=== PATIENT | male | born 1960 | race Hispanic/Latino ===

== ENCOUNTER 2024-01-13 18:50 | Observation (INO) | payer OTHER ==
[~2024-01-13] VITALS: Ht 167.6 cm; Wt 93.9 kg
[~2024-01-13 18:50] MED LIST: COREG3.125 MG PO; METOPROLOL SUCC25 MG PO; PERCOCET 5-3251 EACH PO; XARELTO20 MG PO; [UNRECOGNIZED DRUG - REMARK]
[2024-01-13] MEDS: DILTIAZEM HCL 5 MG/ML 5 ML VIAL IV STA (19:03)
[2024-01-13] MEDS: METOPROLOL TARTRATE INJ 1 MG/ML VIAL IV STA (19:07)
[2024-01-13] MEDS: DIGOXIN INJ 0.25 MG/ML 2 ML AMP IV STA (19:13)
[2024-01-13 19:16] LABS: BASOPHILS % 0.2 % (0.0-1.0); HEMOGLOBIN 14.2 g/dL (14.0-18.0); LYMPHOCYTES # (AUTO) 1.2 (1.0-3.2); LYMPHOCYTES % 14.3 % (18.0-39.1); MEAN CORPUSCULAR HEMOGLOBIN 27.8 pg (28-32); MEAN CORPUSCULAR HGB CONC 32.3 g/dL (31-35); MEAN CORPUSCULAR VOLUME 86.1 fL (81-99); MONOCYTES # (AUTO) 0.2 (0.2-0.8); NEUTROPHILS # (AUTO) 6.7 (2.1-6.9); NEUTROPHILS % 82.4 % (38.7-80.0); PLATELET COUNT 337 x10e3/uL (140-360); RED BLOOD COUNT 5.11 x10e6/uL (4.3-5.7); RED CELL DISTRIBUTION WIDTH 17.7 % (11.7-14.4); WHITE BLOOD COUNT 8.17 x10e3/uL (4.8-10.8)
[2024-01-13 19:30] LABS: ALANINE AMINOTRANSFERASE 13 IU/L (0-55); ALBUMIN 3.8 g/dL (3.5-5.0); ALBUMIN/GLOBULIN RATIO 1.1 (0.8-2.0); ALKALINE PHOSPHATASE 97 IU/L (40-150); ANION GAP 18.1 mmol/L (8-16); BILIRUBIN,TOTAL 0.4 mg/dL (0.2-1.2); BLOOD UREA NITROGEN 24 mg/dL (7-26); BUN/CREATININE RATIO 22 (6-25); CALCIUM 8.8 mg/dL (8.4-10.2); CARBON DIOXIDE 17 mmol/L (22-29); CHLORIDE 107 mmol/L (98-107); CREATINE KINASE 182 IU/L (30-200); CREATININE, SERUM 1.11 mg/dL (0.72-1.25); EST GLOMERULAR FILTRATION RATE 76 ML/MIN (>=60); GLUCOSE 170 mg/dL (74-118); POTASSIUM 4.1 mmol/L (3.5-5.1); SODIUM 138 mmol/L (136-145); TOTAL PROTEIN 7.4 g/dL (6.5-8.1)
[2024-01-13 19:37] LABS: TROPONIN I < 0.001 ng/mL (0-0.300)
[2024-01-13 21:32] LABS: CREATINE KINASE 151 IU/L (30-200)
[2024-01-13 21:40] LABS: TROPONIN I < 0.001 ng/mL (0-0.300)
[2024-01-13 22:11] VITALS: PULSE 100; RESP 16; TEMP 98.4
[2024-01-13 22:41] VITALS: PULSE 80; RESP 16; O2SAT 96
[2024-01-13 23:00] VITALS: BP_SYST 101; BP_SYST 106; BP_DIAS 74; PULSE 93; RESP 20; TEMP 98; O2SAT 99
[2024-01-13 23:07] VITALS: BP 106/74; PULSE 93; RESP 20; TEMP 98; O2SAT 99
[2024-01-13] MEDS ORDERED: AIRSUPRA 90-810.7 GM INH (23:58)
[2024-01-14] VITALS (12 sets, daily range): BP systolic 118–167; BP diastolic 81–138; PULSE 70–106; RESP 17–20; TEMP 97.8–99.9; O2SAT 96–100
[2024-01-14] MEDS ORDERED: ACETAMINOPHEN 325 MG TAB PO PRN (11:00)
[2024-01-14] MEDS ORDERED: ONDANSETRON HCL INJ 2MG/ML 2ML 2 MG/ML VIAL IV PRN (11:00)
[2024-01-14] MEDS: METOPROLOL SUCCINATE 25 MG TAB XL PO SCH ×2 (11:44→18:51)
[2024-01-14] MEDS: AZITHROMYCIN 250 MG TAB PO SCH (12:12)
[2024-01-14] MEDS: BUDESONIDE INH SCH (14:00)
[2024-01-14] MEDS: ALBUTEROL SULFATE INH SCH (14:00)
[2024-01-14] MEDS: ALBUTEROL/IPRATROPIUM 3 ML NEB NEB SCH (15:15)
[2024-01-14] MEDS: RIVAROXABAN 20 MG TABLET PO SCH (17:57)
[2024-01-15] VITALS (11 sets, daily range): BP systolic 128–134; BP diastolic 76–93; PULSE 83–103; RESP 16–20; TEMP 97.6–98.6; O2SAT 95–100
[2024-01-15 06:14] LABS: BASOPHILS # (AUTO) 0.1 (0.0-0.1); EOSINOPHILS # (AUTO) 0.1 (0.0-0.4); EOSINOPHILS % 1.2 % (0.0-6.0); HEMATOCRIT 41.1 % (38.2-49.6); HEMOGLOBIN 13.3 g/dL (14.0-18.0); LYMPHOCYTES # (AUTO) 3.7 (1.0-3.2); LYMPHOCYTES % 45.8 % (18.0-39.1); MEAN CORPUSCULAR HEMOGLOBIN 27.7 pg (28-32); MEAN CORPUSCULAR HGB CONC 32.4 g/dL (31-35); MEAN CORPUSCULAR VOLUME 85.6 fL (81-99); MONOCYTES # (AUTO) 0.6 (0.2-0.8); MONOCYTES % 7.5 % (4.4-11.3); NEUTROPHILS # (AUTO) 3.5 (2.1-6.9); NEUTROPHILS % 42.9 % (38.7-80.0); PLATELET COUNT 274 x10e3/uL (140-360); RED CELL DISTRIBUTION WIDTH 17.1 % (11.7-14.4); WHITE BLOOD COUNT 8.13 x10e3/uL (4.8-10.8)
[2024-01-15 06:51] LABS: CREATININE, SERUM 0.82 mg/dL (0.72-1.25)
[2024-01-15 07:13] LABS: THYROID STIMULATING HORMONE 1.866 uIU/mL (0.350-4.940)
[2024-01-15] MEDS: METOPROLOL TARTRATE INJ 1 MG/ML VIAL IV PRN (12:04)
[2024-01-15] MEDS: METOPROLOL TARTRATE 50 MG TAB PO SCH (12:04)
[2024-01-15] MEDS ORDERED: METOPROLOL TART50 MG PO (15:11)
[2024-01-15] MEDS ORDERED: ONDANSETRON HCL 4 MG ORAL DISINTEGRATING TAB PO PRN (15:45)
== END 2024-01-15 16:50 | disposition home or self-care (01) ==
LOC: ER 19:03 → ERHOLD 21:53 → MED/SURG3 22:35
PROVIDERS: ADMIT Internal Medicine; ATTEND Internal Medicine
DX: I48.91 Unspecified atrial fibrillation (principal); J44.9 Chronic obstructive pulmonary disease, unspecified; I10 Essential (primary) hypertension; E66.9 Obesity, unspecified; J98.11 Atelectasis; I35.1 Nonrheumatic aortic (valve) insufficiency; Z11.52 Encounter for screening for COVID-19; Z79.02 Long term (current) use of antithrombotics/antiplatelets; Z79.899 Other long term (current) drug therapy; Z68.33 Body mass index [BMI] 33.0-33.9, adult; Z86.711 Personal history of pulmonary embolism; Z86.718 Personal history of other venous thrombosis and embolism; Z82.49 Family history of ischemic heart disease and other diseases of the circulatory system
CPT/HCPCS: 36415 ×2; 71045; 80048; 80053; 82550; 83036; 83690; 83880; 84443; 84484; 85025 ×2; 93005; 93306; 94640 ×3; 94799 ×3; 99284; G0378 ×3; J1160; U0002